=== PATIENT | female | born 1960 | race Two or more races ===

== ENCOUNTER → 2025-10-10 | Emergency (ER) | payer OTHER ==
[~2025-10-10] VITALS: Ht 165.1 cm; Wt 46.7 kg
[~2025-10-10] MED LIST: DICLOFENAC SODI50 MG PO; KETOROLAC TROMETHAMINE 30 MG VIAL IM ONE; KETOROLAC TROMETHAMINE 30 MG VIAL ONE; NORFLEX100MG PO; ORPHENADRINE CITRATE 30 MG/ML AMPUL IM ONE; ORPHENADRINE CITRATE 30 MG/ML AMPUL ONE
== END | disposition home or self-care (01) ==
LOC: ER 14:41
DX: M54.50 Low back pain, unspecified (principal); M51.369 Other intervertebral disc degeneration, lumbar region without mention of lumbar back pain or lower extremity pain; M85.88 Other specified disorders of bone density and structure, other site